=== PATIENT | female | born 1985 | race Caucasian/White ===

== ENCOUNTER 2021-05-30 10:07 | Emergency (ER) | payer OTHER ==
[~2021-05-30] VITALS: Ht 157.5 cm; Wt 48.1 kg
[2021-05-30 10:21] VITALS: BP 188/80
--- NOTE | 2021-05-30 10:21 | NUR ---
PATIENT AMBULATED TO BED 11.
--- NOTE | 2021-05-30 10:51 | NUR ---
35 Y/O FEMALE C/O RIGHT LEG PAIN WHICH RADIATES FROM THE R HIP DOWN. THE PAIN IS DESCRIBED A SHOOTING TYPE OF PAIN RATED 10/10. AN MRI DONE FOR PT [id number] AGO. PT IS ON DYALYSIS AND STATES SHE CAME FROM DIALYSIS TODAY AND HAD JUST FINISHED TX, 3.5L FLUID PULLED. SHE HAS LEFT AV SHUNT TO UPPER ARM. DENIES N/V, DENIES FEVR/CHILLS. PMH: DM, HTN, ESRD (T, TH, SAT, AND MON) NKA
--- NOTE | 2021-05-30 10:57 | NUR ---
DR. FERRER BEDSIDE EVALUATING PT
--- NOTE | 2021-05-30 10:57 | NUR ---
Patient being evaluated by DR FERRER at bedside.
[2021-05-30] MEDS ORDERED: LID5T TP (11:07)
[2021-05-30] MEDS ORDERED: METH4TAB1 PO (11:07)
[2021-05-30] MEDS: MORPHINE SULFATE 4 MG/ML SYR IM ONE (11:31)
[2021-05-30] MEDS: DEXAMETHASONE 10 MG/ML VIAL IM ONE (11:31)
[2021-05-30 12:17] VITALS: BP 188/80
--- NOTE | 2021-05-30 12:19 | NUR ---
Patient discharged with v/s stable. Written and verbal after care instructions given and explained. Patient alert, oriented and verbalized understanding of instructions. Wheel Chair Assisted with by MOM ALMA ROSA. All questions addressed prior to discharge. ID band removed. Patient advised to follow up with PMD. Rx of Lidoderm 5%, Medrol 4 MG TABLETS WERE given. Patient educated on indication of medication including possible reaction and side effects. Opportunity to ask questions provided and answered.
== END 2021-05-30 12:17 | disposition home or self-care (01) ==
LOC: MED 10:07
DX: M54.32 Sciatica, left side (principal); E11.22 Type 2 diabetes mellitus with diabetic chronic kidney disease; I12.9 Hypertensive chronic kidney disease with stage 1 through stage 4 chronic kidney disease, or unspecified chronic kidney disease; N18.9 Chronic kidney disease, unspecified
CPT/HCPCS: 96372; 99284; J1100; J2270